=== PATIENT | male | born 1995 | race Caucasian/White ===

== ENCOUNTER 2016-05-25 23:32 | Emergency (ER) | payer OTHER ==
[2016-05-25] MEDS: MORPHINE SULFATE 4 MG/ML SYRINGE IVP STA ×2 (23:38→23:46)
[2016-05-25] MEDS ORDERED: MIDAZOLAM 2 MG/2 ML VIAL IV ONE (23:38)
[2016-05-25] MEDS: SODIUM CHLORIDE 0.9% 1,000 ML IV STA (23:40)
[2016-05-25] MEDS ORDERED: ceFAZolin 2 GM in SODIUM CHLORIDE 0.9% 100 ML IVPB STA ×2 (23:40→23:47)
[2016-05-25] MEDS ORDERED: SODIUM CHLORIDE 0.9% 1,000 ML IV STA (23:46)
[2016-05-25] MEDS ORDERED: RX INFO: IV CONTRAST WAS GIVEN 1 EACH MISC MISCELLANE PRN ×2 (23:46→23:48)
[2016-05-25] MEDS ORDERED: DIPH,PERTUS(ACELL)TETVAC-LF 0.5 ML VIAL IM ONE (23:46)
[2016-05-25] MEDS ORDERED: SODIUM CHLORIDE 0.9% 500 ML IV STA (23:46)
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
[2016-05-25 23:53] LABS: Basophils # (A) 0.1 k/uL (0-0.2); Basophils % (A) 0 %; Eosinophils # (A) 0.2 k/uL (0-0.7); Eosinophils % (A) 1 %; HCT 43.5 % (39.0-53.0); HDW 2.52; HGB 14.7 gm/dL (13.0-17.5); Luc # (Auto) 0.35; Luc % (Auto) 2; Lymphocytes # (A) 3.2 k/uL (1.0-4.8); Lymphocytes % (A) 22 %; MCHC 33.7 g/dL (31.0-37.0); Mean Platelet Volume 7.2; Monocytes # (A) 0.5 k/uL (0-1.0); Monocytes % (A) 4 %; Neutrophils # (A) 10.4 k/uL (1.3-7.7); Neutrophils % (A) 71 %; RBC 4.89 m/uL (4.30-5.90); RDW 12.1 % (11.5-15.5); WBC 14.7 k/uL (4.0-11.0); WBC (Perox) 14.89
[2016-05-26] LABS: ALT 108 U/L (21-72); AST 103 U/L (17-59); Alkaline Phosphatase 65 U/L (38-126); Amylase 80 U/L (30-110); Anion Gap 12 mmol/L; Blood Urea Nitrogen 15 mg/dL (9-20); Calcium 8.2 mg/dL (8.4-10.2); Carbon Dioxide 23 mmol/L (22-30); Chloride 108 mmol/L (98-107); Glucose 106 mg/dL (74-99); Non-African American GFR(MDRD) >60 (>60 ml/min/1.73 sqM); Potassium 4.3 mmol/L (3.5-5.1); Sodium 143 mmol/L (137-145); Total Bilirubin 0.6 mg/dL (0.2-1.3); Total Protein 7.4 g/dL (6.3-8.2)
[2016-05-26 00:01] LABS: Alcohol 227 mg/dL
[2016-05-26 00:05] LABS: INR 1.1 (<1.1); Partial Thromboplastin Time 22.2 sec (22.0-30.0)
[2016-05-26 00:09] LABS: Creatine Kinase 466 U/L (55-170)
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
[2016-05-26 00:22] LABS: Creatine Kinase MB 1.9 ng/mL (0.0-2.4); Troponin I <0.012 ng/mL (0.000-0.034)
[2016-05-26] MEDS: SODIUM CHLORIDE 0.9% 1,000 ML IV STA (00:39)
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
[2016-05-26 01:07] VITALS: BP 180/95; PULSE 121; RESP 18; TEMP 96.1
[2016-05-26 01:34] LABS: Appearance,Urine Clear (Clear); Bacteria,Urine Rare /hpf; Bilirubin,Urine Negative (Negative); Glucose,Urine (UA) Negative (Negative); Granular Casts,Urine 4 /lpf (0); Ketones,Urine Negative (Negative); Leukocyte Esterase,Urine Negative (Negative); Mucus,Urine Rare /hpf; Nitrite,Urine Negative (Negative); PH, Urine 5.5 (5.0-8.0); Particle Count 5268; Protein,Urine Trace (Negative); RBC,Urine 173 /hpf (0-5); Specific Gravity,Urine 1.028 (1.001-1.035); Squamous Epithelial Cell,Urine <1 /hpf (0-4); UA Billing (MACRO vs. MICRO) MICRO; Urobilinogen,Urine <2.0 mg/dL (<2.0); WBC,Urine 11 /hpf (0-5)
[2016-05-27 10:57] LABS: Glucose,Whole Blood 99 mg/dL (75-99)
== END 2016-05-26 02:10 | disposition other institution (70) ==
LOC: EC 23:32
DX: S32.512A Fracture of superior rim of left pubis, initial encounter for closed fracture (principal); S72.302A Unspecified fracture of shaft of left femur, initial encounter for closed fracture; S09.90XA Unspecified injury of head, initial encounter; F10.129 Alcohol abuse with intoxication, unspecified; Z23 Encounter for immunization; V48.5XXA Car driver injured in noncollision transport accident in traffic accident, initial encounter; Y92.410 Unspecified street and highway as the place of occurrence of the external cause
CPT/HCPCS: 99291; 27502; 96365; 96375 ×2; 96361; 90471; 36415; 93005; 86900; 86901; 80053; 82150; 82550; 82553; 83690; 84484; 85025; 85610; 85730; 86850; 81001; 80306; 80320; 71010; 72170; 73552; 73701; 72125; 70486; 70450; 71260; 74177; 90715; J2250; J2270; J0690; Q9967

== ENCOUNTER 2016-12-12 16:09 | Emergency (ER) | payer OTHER ==
[2016-12-12 16:22] VITALS: BP 143/85; PULSE 90; RESP 18; TEMP 96.8
[2016-12-12] MEDS ORDERED: HYDROcodone/APAP 5-325MG 1 EACH TAB PO STA (16:23)
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
== END 2016-12-12 17:35 | disposition home or self-care (01) ==
LOC: EC 16:09
DX: S62.664A Nondisplaced fracture of distal phalanx of right ring finger, initial encounter for closed fracture (principal); S61.304A Unspecified open wound of right ring finger with damage to nail, initial encounter; W20.8XXA Other cause of strike by thrown, projected or falling object, initial encounter; Y93.89 Activity, other specified
CPT/HCPCS: 99283

== ENCOUNTER 2017-01-02 16:34 | Emergency (ER) | payer OTHER ==
[2017-01-02 16:47] VITALS: BP 132/78; PULSE 95; RESP 18; TEMP 97.9
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
== END 2017-01-02 17:13 | disposition home or self-care (01) ==
LOC: EC 16:34
DX: T24.201A Burn of second degree of unspecified site of right lower limb, except ankle and foot, initial encounter (principal); L08.89 Other specified local infections of the skin and subcutaneous tissue; S70.312A Abrasion, left thigh, initial encounter; X19.XXXA Contact with other heat and hot substances, initial encounter
CPT/HCPCS: 99283

== ENCOUNTER 2017-07-17 06:17 | Emergency (ER) | payer OTHER ==
[2017-07-17 06:24] VITALS: TEMP 98.7
[2017-07-17] MEDS ORDERED: SODIUM CHLORIDE 0.9% 500 ML IV STA (06:25)
[2017-07-17] MEDS ORDERED: IPRATROPIUM-ALBUTEROL 3 ML NEB INHALATION STA (06:25)
--- NOTE | 2017-07-17 06:27 | ED ---
General Adult HPI - General Chief complaint: Shortness of Breath Stated complaint: GARRISON Time Seen by Provider: 07/17/17 06:23 Source: patient, RN notes reviewed, old records reviewed Mode of arrival: EMS Limitations: no limitations - History of Present Illness Initial comments: This is a 22-year-old male the ER for evaluation. Patient does say for evaluation regarding shortness of breath cough and congestion, increased cough and congestion. Patient states he does have albuterol inhaler at home but has not had significant improvement. No recent travel history no sick contacts no pain. He does have increased cough and congestion but no fever - Related Data Previous Rx's Medication Instructions Recorded Cephalexin [Keflex] 500 mg PO QID #28 cap 12/12/16 Hydrocodone/Acetaminophen [Burns 1 tab PO Q6HR PRN #15 tab 12/12/16 5-325] Ibuprofen [Motrin] 600 mg PO Q6HR PRN #20 tab 12/12/16 Cephalexin [Keflex] 500 mg PO Q6HR #40 cap 01/02/17 Allergies Allergy/AdvReac Type Severity Reaction Status Date / Time No Known Allergies Allergy Verified 05/25/16 23:55 Review of Systems ROS Statement: Those systems with pertinent positive or pertinent negative responses have been documented in the HPI. ROS Other: All systems not noted in ROS Statement are negative. Past Medical History Past Medical History: Asthma History of Any Multi-Drug Resistant Organisms: None Reported Past Surgical History: Orthopedic Surgery Past Psychological History: No Psychological Hx Reported Smoking Status: Never smoker Past Alcohol Use History: None Reported Past Drug Use History: Marijuana General Exam Limitations: no limitations General appearance: alert, in no apparent distress Head exam: Present: atraumatic, normocephalic, normal inspection Eye exam: Present: normal appearance, PERRL, EOMI. Absent: scleral icterus, conjunctival injection, periorbital swelling ENT exam: Present: normal exam, mucous membranes moist Neck exam: Present: normal inspection. Absent: tenderness, meningismus, lymphadenopathy Respiratory exam: Present: normal lung sounds bilaterally, wheezes. Absent: respiratory distress, rales, rhonchi, stridor Cardiovascular Exam: Present: regular rate, normal rhythm, normal heart sounds. Absent: systolic murmur, diastolic murmur, rubs, gallop, clicks GI/Abdominal exam: Present: soft, normal bowel sounds. Absent: distended, tenderness, guarding, rebound, rigid Extremities exam: Present: normal inspection, full ROM, normal capillary refill. Absent: tenderness, pedal edema, joint swelling, calf tenderness Back exam: Present: normal inspection Neurological exam: Present: alert, oriented X3, CN II-XII intact Psychiatric exam: Present: normal affect, normal mood Skin exam: Present: warm, dry, intact, normal color. Absent: rash Course Vital Signs 07/17/17 06:20 Temperature 98.7 F Pulse Rate 80 Respiratory 16 Rate Blood Pressure 168/104 O2 Sat by Pulse 94 L Oximetry - Reevaluation(s) Reevaluation #1: 07/17/17 06:26 Patient has no significant fevers, no significant chest pain, improvement with breathing treatments Medical Decision Making - Medical Decision Making 22 male the ER was significant has been exacerbation. Patient does have inhaler at home, will represcribed, started on steroids and patient can be discharged home Disposition Clinical Impression: Asthma with exacerbation Disposition: HOME SELF-CARE Condition: Good Instructions: Asthma (ED), Acute Bronchitis (ED) Referrals: Robinson Alvarado DO [Primary Care Provider] - 1-2 days
[2017-07-17] MEDS: MAGNESIUM SULFATE-D5W PMX 1 GM in DEXTROSE/WATER 1 100ML.BAG IVPB SCH ×2 (06:45→08:14)
[2017-07-17 07:20] VITALS: BP 163/87; PULSE 80; RESP 18
== END 2017-07-17 07:44 | disposition home or self-care (01) ==
LOC: EC 06:17
DX: J45.901 Unspecified asthma with (acute) exacerbation (principal)
CPT/HCPCS: 94640; 99285; 96365; J3475

== ENCOUNTER 2017-08-20 17:19 | Emergency (ER) | payer OTHER ==
--- NOTE | 2017-08-20 17:57 | ED ---
Upper Extremity HPI - General Chief Complaint: Extremity Injury, Upper Stated Complaint: Swollen Hand Time Seen by Provider: 08/20/17 17:51 Source: patient, RN notes reviewed Mode of arrival: ambulatory Limitations: no limitations - History of Present Illness Initial Comments: This is a 22-year-old male who presents to the emergency department with chief complaint of right hand injury. Patient states that 2 nights ago he was drinking and punched a wall. He states that since that time his right hand has becomes swollen and he has intermittent pain on the lateral aspect of his hand. He states he wanted to just make sure it was not broken. He states he has been using it at work without any difficulty. Denies any other injuries or trauma. Denies fever, chills, chest pain, shortness of breath, abdominal pain, nausea or vomiting, constipation or diarrhea, dysuria or hematuria, numbness or tingling, headache or vision changes. - Related Data Home Medications Medication Instructions Recorded Confirmed Albuterol Inhaler [Ventolin Hfa 1 - 2 puff INHALATION RT-Q6H PRN 08/20/17 Inhaler] Allergies Allergy/AdvReac Type Severity Reaction Status Date / Time No Known Allergies Allergy Verified 08/20/17 17:48 Review of Systems ROS Statement: Those systems with pertinent positive or pertinent negative responses have been documented in the HPI. ROS Other: All systems not noted in ROS Statement are negative. Past Medical History Past Medical History: Asthma History of Any Multi-Drug Resistant Organisms: None Reported Past Surgical History: Orthopedic Surgery Past Psychological History: No Psychological Hx Reported Smoking Status: Never smoker Past Alcohol Use History: Occasional Past Drug Use History: Marijuana General Exam - General Exam Comments Initial Comments: General: Awake and alert, well-developed; in no apparent distress. HEENT: Head atraumatic, normocephalic. Pupils are equal, round and reactive to light. Extraocular movements intact. Oropharynx moist without erythema or exudate. Neck: Supple. Normal ROM. Cardiovascular: Regular rate and rhythm. No murmurs, rubs or gallops. Chest symmetrical. Respiratory: Lungs clear to auscultation bilaterally. No wheezes, rales or rhonchi. Normal respiratory effort with no use of accessory muscles. Musculoskeletal: Normal range of motion of the right hand and wrist. There is generalized soft tissue swelling to the dorsal aspect of the hand with mild tenderness along the fifth and fourth metacarpals. Sensation is intact. Radial pulses are 2+ equal and palpable bilaterally. Skin: [place], warm and dry without rashes or lesions. Neurological: Alert and oriented x3. CN II-XII grossly intact. Speech is fluent and answers are appropriate. No focal neuro deficits. Psychiatric: Normal mood and affect. No overt signs of depression or anxiety noted. Limitations: no limitations Course Vital Signs 08/20/17 17:35 Temperature 98.8 F Pulse Rate 81 Respiratory 18 Rate Blood Pressure 160/81 O2 Sat by Pulse 97 Oximetry Medical Decision Making - Medical Decision Making This is a 22-year-old male who presents to the emergency department with chief complaint of right hand injury that happened 2 days ago. On physical examination, there is generalized swelling to the dorsal aspect of the right hand with mild tenderness along the fourth and fifth metacarpals. An x-ray was obtained and revealed no acute abnormalities. Patient was supplied with an Ye bandage. He is in no acute distress and will be discharged home at this time. Recommend rest, ice, elevation and ibuprofen as needed. He is in agreement and voices understanding. All questions were answered. - Radiology Data Radiology results: report reviewed Right hand x-ray impression: Negative right hand exam. Disposition Clinical Impression: Contusion of right hand Disposition: HOME SELF-CARE Condition: Good Instructions: Hand Sprain (ED) Additional Instructions: Please rest, ice, elevate and wear Ye bandage until today. May take ibuprofen as needed for pain and inflammation. Please follow up with primary care provider within 1-2 days. Return to emergency department if symptoms should worsen or any concerns arise. Is patient prescribed a controlled substance at d/c from ED?: No Referrals: Robinson Alvarado DO [Primary Care Provider] - 1-2 days Time of Disposition: 18:14
--- NOTE | 2017-08-20 18:10 | XR ---
EXAMINATION TYPE: XR hand complete RT DATE OF EXAM: 08/20/2017 COMPARISON: NONE HISTORY: Pain TECHNIQUE: 3 views FINDINGS: I see no fracture nor dislocation. Joint spaces are normal. Metacarpals are intact. IMPRESSION: Negative right hand exam.
[2017-08-20 18:30] VITALS: BP 154/77; PULSE 87; RESP 17; TEMP 98.7
== END 2017-08-20 18:29 | disposition home or self-care (01) ==
LOC: EC 17:19
DX: S60.221A Contusion of right hand, initial encounter (principal); W22.01XA Walked into wall, initial encounter
CPT/HCPCS: 99283

== ENCOUNTER 2018-03-18 18:06 | Emergency (ER) | payer OTHER ==
--- NOTE | 2018-03-18 18:12 | ED ---
Extremity Problem HPI - General Stated complaint: thumb injury Time Seen by Provider: 03/18/18 18:07 Source: RN notes reviewed, old records reviewed - History of Present Illness Initial comments: Patient is initially 2-year-old male presents emergency Department chief complaint of dropping a cinder block on his right thumb. He works at work. He reports he has a small abrasion over the thumb. He states that since that time is continue to swell and he reports pain with range of motion of the thumb. Patient states that he is right-handed. He denies any other complaints. Patient states that he has pain with any range of motion of the thumb. No other finger injury. - Related Data Home Medications Medication Instructions Recorded Confirmed Albuterol Inhaler [Ventolin Hfa 1 - 2 puff INHALATION RT-Q6H PRN 08/20/17 Inhaler] Previous Rx's Medication Instructions Recorded Acetaminophen with Codeine 1 tab PO Q6H PRN 3 Days #12 tab 03/18/18 [Tylenol w/codeine #3] Cephalexin [Keflex] 500 mg PO Q8HR #21 cap 03/18/18 Allergies Allergy/AdvReac Type Severity Reaction Status Date / Time No Known Allergies Allergy Verified 08/20/17 17:48 Review of Systems ROS Statement: Those systems with pertinent positive or pertinent negative responses have been documented in the HPI. ROS Other: All systems not noted in ROS Statement are negative. Past Medical History Past Medical History: Asthma History of Any Multi-Drug Resistant Organisms: None Reported Past Surgical History: Orthopedic Surgery Past Psychological History: No Psychological Hx Reported Smoking Status: Never smoker Past Alcohol Use History: Occasional Past Drug Use History: Marijuana General Exam - General Exam Comments Initial Comments: 22-year-old male. Alert and oriented. No acute distress. General appearance: alert, in no apparent distress Head exam: Present: atraumatic, normocephalic, normal inspection Eye exam: Present: normal appearance, PERRL, EOMI. Absent: scleral icterus, conjunctival injection, periorbital swelling ENT exam: Present: normal exam, mucous membranes moist Neck exam: Present: normal inspection. Absent: tenderness, meningismus, lymphadenopathy Respiratory exam: Present: normal lung sounds bilaterally Cardiovascular Exam: Present: regular rate, normal rhythm, normal heart sounds. Absent: systolic murmur, diastolic murmur, rubs, gallop, clicks GI/Abdominal exam: Present: soft, normal bowel sounds. Absent: distended, tenderness, guarding, rebound, rigid Extremities exam: Present: normal inspection, full ROM, normal capillary refill. Absent: tenderness, pedal edema, joint swelling, calf tenderness Right Elbow exam: Present: normal inspection, full ROM Forearm Wrist exam: Present: normal inspection, full ROM Hand Wrist exam: Absent: normal inspection, full ROM ( is swelling, swollen first digit. Pain with flexion and extension of the first digit. 2 cm abrasion noted over the thumb.) Back exam: Present: normal inspection Neurological exam: Present: alert, oriented X3, CN II-XII intact Psychiatric exam: Present: normal affect, normal mood Skin exam: Present: warm, dry, intact, normal color. Absent: rash Course Vital Signs 03/18/18 03/18/18 18:10 19:32 Temperature 98.2 F 98.2 F Pulse Rate 105 H 105 H Respiratory 18 18 Rate Blood Pressure 138/77 138/77 O2 Sat by Pulse 98 98 Oximetry Procedures - Orthopedic Splinting/Casting Injury #1 Side: left Upper Extremity Injury Location: finger (thumb) Upper Extremity Immobilizer: thumb spica Medical Decision Making - Medical Decision Making 22 year old male with R thumb pain after concrete smashed the finger. He hsa small abraision over thumb. Xray shows nondisplaced proximal phalanx fracture. Patient placed in thumb spica splint. Given referral to orthopedics. Patient will be placed on keflex for abrasion to cover for open fracture. Discussed close follow up with ortho. Return paramters discussed. - Radiology Data Radiology results: report reviewed Non displaced fracture of proximal first phalanx. Disposition Clinical Impression: Thumb fracture, Open fracture Disposition: HOME SELF-CARE Condition: Good Instructions: Thumb Fracture (ED) Additional Instructions: Patient advised to follow-up with primary care physician. Follow-up with seafood specialist. Take meds as prescribed. Wear the splint. Return to emergency department if any alarming signs or symptoms occur. Prescriptions: Acetaminophen with Codeine [Tylenol w/codeine #3] 1 tab PO Q6H PRN 3 Days #12 tab PRN Reason: Pain Cephalexin [Keflex] 500 mg PO Q8HR #21 cap Is patient prescribed a controlled substance at d/c from ED?: Yes If prescribed controlled substance>3 days was MAPS reviewed?: Yes If opioid is for acute pain is fill amount 7 days or less?: Yes If Rx opioid, was Start Talking consent form obtained?: Yes Referrals: Robinson Alvarado DO [Primary Care Provider] - 1-2 days Daniele Zavala DO [Doctor of Osteopathic Medicine] - 1-2 days Time of Disposition: 19:20
[2018-03-18 18:13] VITALS: BP 138/77; PULSE 105; RESP 18; TEMP 98.2
--- NOTE | 2018-03-18 19:01 | XR ---
EXAMINATION TYPE: XR hand complete RT DATE OF EXAM: 03/18/2018 COMPARISON: NONE HISTORY: Laceration. Pain. TECHNIQUE: 3 views FINDINGS: There is nondisplaced fracture across the head of the proximal phalanx of the thumb. There is no dislocation. Joint spaces are normal. IMPRESSION: Nondisplaced fracture of the proximal phalanx of the thumb.
== END 2018-03-18 19:32 | disposition home or self-care (01) ==
LOC: EC 18:06
DX: S62.514B Nondisplaced fracture of proximal phalanx of right thumb, initial encounter for open fracture (principal); J45.909 Unspecified asthma, uncomplicated; F17.200 Nicotine dependence, unspecified, uncomplicated; W20.8XXA Other cause of strike by thrown, projected or falling object, initial encounter; Y92.69 Other specified industrial and construction area as the place of occurrence of the external cause
CPT/HCPCS: 29125; 99284

== ENCOUNTER 2019-01-06 18:19 | Emergency (ER) | payer OTHER ==
[2019-01-06 18:27] VITALS: BP 158/98; PULSE 82; RESP 18; TEMP 97.6
--- NOTE | 2019-01-06 18:54 | ED ---
Extremity Problem HPI - General Chief complaint: Extremity Problem,Nontraumatic Stated complaint: skin infection Source: patient Mode of arrival: ambulatory Limitations: no limitations - History of Present Illness Initial comments: 23-year-old male presents emergency department for evaluation of redness of the right calf x 1 day. Patient states he had a tattoo done on his right calf on Saturday he states that he noticed redness or some areas of the tattoo. Patient states that he is concerned of an infection. Patient state that it feels tight. Patient denies any inability to walk. Patient states that the symptoms began today. Patient denies a fever fluid symptoms. Remaining review system negative. Upon arrival patient appears well no signs of acute distress - Related Data Home Medications Medication Instructions Recorded Confirmed Albuterol Inhaler [Ventolin Hfa 1 - 2 puff INHALATION RT-Q6H PRN 08/20/17 08/20/17 Inhaler] Previous Rx's Medication Instructions Recorded Acetaminophen with Codeine 1 tab PO Q6H PRN 3 Days #12 tab 03/18/18 [Tylenol w/codeine #3] Cephalexin [Keflex] 500 mg PO Q8HR #21 cap 03/18/18 Cephalexin [Keflex] 500 mg PO Q6HR 7 Days #28 cap 01/06/19 Sulfamethox-Tmp 800-160Mg [Bactrim 1 tab PO Q12HR 7 Days #14 tab 01/06/19 DS 800-160 mg] Allergies Allergy/AdvReac Type Severity Reaction Status Date / Time No Known Allergies Allergy Verified 01/06/19 18:26 Review of Systems ROS Statement: Those systems with pertinent positive or pertinent negative responses have been documented in the HPI. ROS Other: All systems not noted in ROS Statement are negative. Past Medical History Past Medical History: Asthma History of Any Multi-Drug Resistant Organisms: None Reported Past Surgical History: Orthopedic Surgery Past Psychological History: No Psychological Hx Reported Smoking Status: Never smoker Past Alcohol Use History: Occasional Past Drug Use History: Marijuana General Exam - General Exam Comments Initial Comments: General: The patient is awake and alert, in no distress, and does not appear acutely ill. Eye: Pupils are equal, round and reactive to light, extra-ocular movements are intact. No nystagmus. There is normal conjunctiva bilaterally. No signs of icterus. Cardiovascular: There is a regular rate and rhythm. No murmur, rub or gallop is appreciated. Respiratory: Lungs are clear to auscultation, respirations are non-labored, breath sounds are equal. No wheezes, stridor, rales, or rhonchi. Musculoskeletal: Normal ROM, no tenderness. Strength 5/5. Sensation intact. Pulses equal bilaterally 2+. Neurological: A&O x 3. CN II-XII intact grossly, There are no obvious motor or sensory deficits. Coordination appears grossly intact. Speech is normal. Skin: Skin is warm and dry and no rashes. Tatoo on the right calf, noted redness within the areas between the Ink. No vesicular lesions. Compartments soft and compressible. No pain out of proportion. MIld warmth Psychiatric: Cooperative, appropriate mood & affect, normal judgment. Limitations: no limitations Course Vital Signs 01/06/19 18:24 Temperature 97.6 F Pulse Rate 82 Respiratory 18 Rate Blood Pressure 158/98 O2 Sat by Pulse 100 Oximetry Medical Decision Making - Medical Decision Making 23-year-old male with recent tattoo, area appears to have a developing cellulitis. No bullae or vesicular lesions, no pain out of proportion. No systemic signs of infection. Afebrile, nontoxic appearance. Patient will be discharged with oral antibiotics return parameters were discussed patient was discharged appearing well. Disposition Clinical Impression: Cellulitis Disposition: HOME SELF-CARE Condition: Good Instructions (If sedation given, give patient instructions): Cellulitis (ED) Additional Instructions: Please use medication as discussed. Please follow-up with family doctor in the next 2 days. Please return to emergency room if the symptoms increase or worsen or for any other concerns. Prescriptions: Sulfamethox-Tmp 800-160Mg [Bactrim DS 800-160 mg] 1 tab PO Q12HR 7 Days #14 tab Cephalexin [Keflex] 500 mg PO Q6HR 7 Days #28 cap Is patient prescribed a controlled substance at d/c from ED?: No Referrals: Robinson Alvarado DO [Primary Care Provider] - 1-2 days Time of Disposition: 18:54
== END 2019-01-06 18:58 | disposition home or self-care (01) ==
LOC: EC 18:19
DX: L03.115 Cellulitis of right lower limb (principal); J45.909 Unspecified asthma, uncomplicated
CPT/HCPCS: 99283

== ENCOUNTER 2019-02-27 01:28 | Emergency (ER) | payer SELFPAY ==
[2019-02-27 01:40] VITALS: TEMP 97.7
[2019-02-27] MEDS ORDERED: KETOROLAC 30 MG/ML 1 ML VIAL IVP STA (01:43)
[2019-02-27] MEDS ORDERED: MORPHINE SULFATE 2 MG/ML SYRINGE IVP STA (01:44)
--- NOTE | 2019-02-27 01:47 | ED ---
Upper Extremity HPI <Melyssa Bella P - Last Filed: 02/27/19 02:26> - General Source: patient Mode of arrival: ambulatory Limitations: no limitations <April Roy - Last Filed: 02/27/19 02:49> - General Chief Complaint: Extremity Injury, Upper Stated Complaint: Fall Rt Arm Injury Time Seen by Provider: 02/27/19 01:42 - History of Present Illness Initial Comments: 23-year-old male patient presents to the emergency department today for evaluation of right hand injury. Patient states approximately one hour ago he was coming up the steps when he slipped and fell backwards. Patient states that he landed on his hand. He states that he believes his hand is broken. He denies hitting his head or losing consciousness. Denies any neck or back pain. Denies any other injuries. Patient is reporting some numbness and tingling to the right fifth digit. Patient denies any headache, chest pain, shortness of breath, dizziness, weakness, abdominal pain, nausea, vomiting, or difficulties with bowel movements or urination. (April Roy) - Related Data Home Medications Medication Instructions Recorded Confirmed Albuterol Inhaler [Ventolin Hfa 1 - 2 puff INHALATION RT-Q6H PRN 08/20/17 08/20/17 Inhaler] Previous Rx's Medication Instructions Recorded Acetaminophen with Codeine 1 tab PO Q6H PRN 3 Days #12 tab 03/18/18 [Tylenol w/codeine #3] Cephalexin [Keflex] 500 mg PO Q8HR #21 cap 03/18/18 Cephalexin [Keflex] 500 mg PO Q6HR 7 Days #28 cap 01/06/19 Sulfamethox-Tmp 800-160Mg [Bactrim 1 tab PO Q12HR 7 Days #14 tab 01/06/19 DS 800-160 mg] Ibuprofen [Motrin] 600 mg PO Q8HR PRN #30 tab 02/27/19 Allergies Allergy/AdvReac Type Severity Reaction Status Date / Time No Known Allergies Allergy Verified 02/27/19 01:40 Review of Systems ROS Other: All systems not noted in ROS Statement are negative. <Melyssa Bella - Last Filed: 02/27/19 02:26> ROS Other: All systems not noted in ROS Statement are negative. <April Roy - Last Filed: 02/27/19 02:49> ROS Statement: Those systems with pertinent positive or pertinent negative responses have been documented in the HPI. Past Medical History Past Medical History: Asthma History of Any Multi-Drug Resistant Organisms: None Reported Past Surgical History: Orthopedic Surgery Past Psychological History: No Psychological Hx Reported Smoking Status: Never smoker Past Alcohol Use History: Occasional Past Drug Use History: Marijuana <April Roy M - Last Filed: 02/27/19 02:49> General Exam Limitations: no limitations General appearance: alert, in no apparent distress, other (This is a well- developed, well-nourished adult male patient in no acute distress. Vital signs upon presentation are temperature 97.7F, pulse 93, respirations 18, blood pressure 145/84, pulse ox 99% on room air.) Eye exam: Present: normal appearance, PERRL, EOMI. Absent: scleral icterus, conjunctival injection, periorbital swelling ENT exam: Present: normal exam, normal oropharynx, mucous membranes moist Respiratory exam: Present: normal lung sounds bilaterally. Absent: respiratory distress, wheezes, rales, rhonchi, stridor Cardiovascular Exam: Present: regular rate, normal rhythm, normal heart sounds. Absent: systolic murmur, diastolic murmur, rubs, gallop, clicks Extremities exam: Present: full ROM, tenderness (Tenderness over the dorsal aspect of the right hand), normal capillary refill, other (There is deformity and extensive soft tissue swelling noted over the dorsal aspect of the right hand. Skin is pink, warm, dry. Cap refill is less than 3 seconds.). Absent: pedal edema, joint swelling, calf tenderness Neurological exam: Present: alert, oriented X3, CN II-XII intact Psychiatric exam: Present: normal affect, normal mood Skin exam: Present: warm, dry, intact, normal color. Absent: rash <April Roy M - Last Filed: 02/27/19 02:49> Course Vital Signs 02/27/19 01:37 Temperature 97.7 F Pulse Rate 93 Respiratory 18 Rate Blood Pressure 145/84 O2 Sat by Pulse 99 Oximetry Procedures - Orthopedic Joint Reduction Joint #1 Consent Obtained: verbal consent Side: right Joint Reduction Location: finger Analgesia: procedural sedation Technique Used: traction/counter-traction Post-Reduction Neuro Exam: intact Post-Reduction Vascular Exam: intact - Procedural Sedation Procedural Sedation Start Time: 02:32 Procedural Sedation Stop Time: 02:47 Indications: fracture/dislocation reduction ASA Class: I Mallampati Airway Score: 1 Preparation: alarm security or surveillance monitor applied, pulse oximeter, capnometry used, supplemental O2 applied, reversal agents at bedside, suction/airway equipment at bedside, IV secured IV Propofol Dose (mgs): 120 Complications: none <Melyssa Bella - Last Filed: 02/27/19 02:26> Medical Decision Making - Radiology Data Radiology results: report reviewed, image reviewed <April Roy - Last Filed: 02/27/19 02:49> - Medical Decision Making 23-year-old male patient presents to the emergency department today for evaluation of right hand injury. Physical examination did reveal deformity of the dorsal aspect of the right hand. X-rays were obtained and did reveal dislocation of the fourth and fifth metacarpals. My attending Dr. Bella was in for evaluation and did perform conscious sedation with closed reduction of the right hand. Splint was applied. Postreduction x-rays were obtained. He'll be discharged to follow-up with the nursing informatics specialist Dr. Adame for further evaluation. He is given prescription for Cipro for pain control. He is educated regarding rest, ice, elevation. Return parameters discussed in detail. He verbalizes understanding and agrees with this plan. (April Roy) - Radiology Data 3 views of the right hand are obtained. Report was reviewed in its entirety. Impression by Dr. Vines shows posterior dislocation of the fourth and fifth carpometacarpal joints. This appears new compared to old exam. No fracture seen. (April Roy) Disposition <Melyssa Bella - Last Filed: 02/27/19 02:26> Is patient prescribed a controlled substance at d/c from ED?: No <April Roy - Last Filed: 02/27/19 02:49> Clinical Impression: Dislocation of metacarpal joint of right hand Narrative: Right fourth and fifth metacarpals (April Roy) Disposition: HOME SELF-CARE Condition: Good Instructions (If sedation given, give patient instructions): Closed Reduction (ED), Moderate Sedation (ED) Additional Instructions: Keep splint in place until follow-up. Apply ice 29th at a time at least 4 times daily. Take ibuprofen for pain control. Follow-up with the orthopedic spec ialist for recheck in 1-2 days. Return to the emergency department immediately for any new, worsening, or concerning symptoms. Prescriptions: Ibuprofen [Motrin] 600 mg PO Q8HR PRN #30 tab PRN Reason: Pain Referrals: Robinson Alvarado DO [Primary Care Provider] - 1-2 days Ruddy Adame DO [Medical Doctor] - 1-2 days
[2019-02-27] MEDS ORDERED: PROPOFOL 10 MG/ML 20 ML VIAL IV STA (02:03)
--- NOTE | 2019-02-27 02:10 | XR ---
EXAMINATION TYPE: XR hand complete RT DATE OF EXAM: 02/27/2019 COMPARISON: 03/18/2018 HISTORY: Pain TECHNIQUE: 3 views FINDINGS: There is posterior dislocation of the fourth and fifth carpometacarpal joints. I see no fra cture line. Joint spaces are otherwise unremarkable. IMPRESSION: Posterior dislocation of the fourth and fifth carpometacarpal joints. This appears new co mpared to old exam. No fracture seen.
[2019-02-27] MEDS ORDERED: IBUPROFEN 600 MG STARTER PACK 4 TAB BTL PO STA (02:44)
--- NOTE | 2019-02-27 03:07 | XR ---
EXAMINATION TYPE: XR hand limited RT DATE OF EXAM: 02/27/2019 COMPARISON: Today HISTORY: Post reduction TECHNIQUE: 2 views FINDINGS: 2 views are obtained through the splint that show apparent anatomic reduction of the disloc ated fourth and fifth carpometacarpal joints . I see no fracture line. IMPRESSION: Anatomic reduction. No complicating process seen.
[2019-02-27 03:51] VITALS: BP 147/68; PULSE 84; RESP 16
== END 2019-02-27 03:53 | disposition home or self-care (01) ==
LOC: EC 01:28
DX: S63.054A Dislocation of other carpometacarpal joint of right hand, initial encounter (principal); J45.909 Unspecified asthma, uncomplicated; Z79.51 Long term (current) use of inhaled steroids; W01.0XXA Fall on same level from slipping, tripping and stumbling without subsequent striking against object, initial encounter
CPT/HCPCS: 73120; 73130; 99283; 99152; 26770; 96374; 96375; J1885; J2270; J2704

== ENCOUNTER → 2019-03-04 | Outpatient (CLI) | payer SELFPAY ==
--- NOTE | 2019-03-04 09:00 | XR ---
EXAMINATION TYPE: XR wrist limited RT DATE OF EXAM: 03/04/2019 COMPARISON: 02/27/2019 HISTORY: Pain TECHNIQUE: Two views submitted. FINDINGS: The osseous structures are intact. The joint spaces are preserved and there is no acute fracture or dislocation. Overlying wrapping casting material noted. IMPRESSION: 1. No definite acute fracture or dislocation.
== END | disposition home or self-care (01) ==
LOC: RADXRMAIN 08:43
PROVIDERS: ATTEND Nurse Practitioner Family
DX: S63.004A Unspecified dislocation of right wrist and hand, initial encounter (principal)

== ENCOUNTER 2019-04-17 13:13 | Emergency (ER) | payer OTHER ==
[2019-04-17 13:57] VITALS: BP 147/87; PULSE 87; RESP 18; TEMP 98.4
--- NOTE | 2019-04-17 14:29 | ED ---
Skin/Abscess/FB HPI - General Chief complaint: Skin/Abscess/Foreign Body Stated complaint: MRSA on leg Time Seen by Provider: 04/17/19 13:58 Source: patient, family Mode of arrival: ambulatory - History of Present Illness Initial comments: 23-year-old male presenting for possible abscess left thighx 1 day. She states that he noticed a day ago a bump on his left eye he states he thought it was ingrown hair however he had a lesion on his wrist which she thought was MRSA but was never tested at the [facility] on his left wrist that went away with bactrim. Patient denies fever, flu like symptoms, denies significant drainage from site. Denies other affected areas. Remaining ROS (-). Upon arrival patient appears well nontoxic. Afebrile. - Related Data Home Medications Medication Instructions Recorded Confirmed Albuterol Inhaler [Ventolin Hfa 1 - 2 puff INHALATION RT-Q6H PRN 08/20/17 08/20/17 Inhaler] Previous Rx's Medication Instructions Recorded Acetaminophen with Codeine 1 tab PO Q6H PRN 3 Days #12 tab 03/18/18 [Tylenol w/codeine #3] Cephalexin [Keflex] 500 mg PO Q8HR #21 cap 03/18/18 Cephalexin [Keflex] 500 mg PO Q6HR 7 Days #28 cap 01/06/19 Sulfamethox-Tmp 800-160Mg [Bactrim 1 tab PO Q12HR 7 Days #14 tab 01/06/19 DS 800-160 mg] Ibuprofen [Motrin] 600 mg PO Q8HR PRN #30 tab 02/27/19 Cephalexin [Keflex] 500 mg PO Q6HR 28 Days #7 cap 04/17/19 Sulfamethox-Tmp 800-160Mg [Bactrim 1 tab PO Q12HR 7 Days #14 tab 04/17/19 DS 800-160 mg] Allergies Allergy/AdvReac Type Severity Reaction Status Date / Time No Known Allergies Allergy Verified 02/27/19 01:40 Review of Systems ROS Statement: Those systems with pertinent positive or pertinent negative responses have been documented in the HPI. ROS Other: All systems not noted in ROS Statement are negative. Past Medical History Past Medical History: Asthma History of Any Multi-Drug Resistant Organisms: None Reported Past Surgical History: Orthopedic Surgery Past Psychological History: No Psychological Hx Reported Smoking Status: Never smoker Past Alcohol Use History: Occasional Past Drug Use History: Marijuana General Exam - General Exam Comments Initial Comments: General: The patient is awake and alert, in no distress, and does not appear acutely ill. Eye: Pupils are equal, round and reactive to light, extra-ocular movements are intact. No nystagmus. There is normal conjunctiva bilaterally. No signs of icterus. Cardiovascular: There is a regular rate and rhythm. No murmur, rub or gallop is appreciated. Respiratory: Lungs are clear to auscultation, respirations are non-labored, breath sounds are equal. No wheezes, stridor, rales, or rhonchi. Musculoskeletal: Normal ROM, no tenderness. Strength 5/5. Sensation intact. Pulses equal bilaterally 2+. Neurological: A&O x 3. CN II-XII intact grossly, There are no obvious motor or sensory deficits. Coordination appears grossly intact. Speech is normal. Skin: Skin is warm and dry and no rashes. Round raised area near hair follicular with no general area of fluctuance however mild surrounding erythema roughly 3 x 3 cm circular left medial thigh, no streaking proximally. Psychiatric: Cooperative, appropriate mood & affect, normal judgment. Course Vital Signs 04/17/19 13:52 Temperature 98.4 F Pulse Rate 87 Respiratory 18 Rate Blood Pressure 147/87 O2 Sat by Pulse 96 Oximetry Medical Decision Making - Medical Decision Making 3-year-old male presenting for possible abscess. No area of fluctuance mild induration very small with surrounding cellulitis. Patient most likely has carbuncle be treated antibiotics return parameters discussed including spreading of redness increasing pain fevers like symptoms patient verbalized understanding discharged appearing well patient has from history of MRSA Disposition Clinical Impression: Cellulitis Disposition: HOME SELF-CARE Condition: Good Instructions (If sedation given, give patient instructions): Cellulitis (ED), Abscess (ED) Additional Instructions: Please use medication as discussed. Please follow-up with family doctor in the next 2 days.. Please return to emergency room if the symptoms increase or worsen or for any other concerns-watch the area of redness as discussed return if there is increasing, you develop fevers increasing pain and swelling, drainage. Prescriptions: Sulfamethox-Tmp 800-160Mg [Bactrim DS 800-160 mg] 1 tab PO Q12HR 7 Days #14 tab Cephalexin [Keflex] 500 mg PO Q6HR 28 Days #7 cap Is patient prescribed a controlled substance at d/c from ED?: No Referrals: Robinson Alvarado DO [Primary Care Provider] - 1-2 days Time of Disposition: 14:29
== END 2019-04-17 14:30 | disposition home or self-care (01) ==
LOC: EC 13:13
DX: L03.116 Cellulitis of left lower limb (principal); J45.909 Unspecified asthma, uncomplicated; Z79.899 Other long term (current) drug therapy; Z86.14 Personal history of Methicillin resistant Staphylococcus aureus infection
CPT/HCPCS: 99283

== ENCOUNTER 2019-10-22 21:15 | Inpatient (IN) | payer OTHER ==
[2019-10-22] MEDS ORDERED: SODIUM CHLORIDE 0.9% 1,000 ML IV STA (21:25)
[2019-10-22 21:34] LABS: Basophils % (A) 1 %; Eosinophils # (A) 0.1 k/uL (0-0.7); Eosinophils % (A) 1 %; HCT 44.6 % (39.0-53.0); HGB 14.5 gm/dL (13.0-17.5); Lymphocytes # (A) 2.9 k/uL (1.0-4.8); Lymphocytes % (A) 32 %; MCH 29.1 pg (25.0-35.0); MCHC 32.5 g/dL (31.0-37.0); MCV 89.6 fL (80.0-100.0); Mean Platelet Volume 8.9; Monocytes # (A) 0.4 k/uL (0-1.0); Monocytes % (A) 5 %; Neutrophils # (A) 5.4 k/uL (1.3-7.7); Neutrophils % (A) 59 %; Platelet Count 212 k/uL (150-450); RBC 4.98 m/uL (4.30-5.90); RDW 12.2 % (11.5-15.5); WBC 9.1 k/uL (3.8-10.6)
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
[2019-10-22] MEDS ORDERED: fentaNYL (PF) 50 MCG/ML 2 ML AMP IVP STA ×2 (21:39→22:05)
[2019-10-22 21:47] LABS: ALT 28 U/L (4-49); AST 37 U/L (17-59); African American GFR (CKD) >90 (>60 ml/min/1.73 sqM); Albumin 4.4 g/dL (3.5-5.0); Alkaline Phosphatase 74 U/L (38-126); Amylase 75 U/L (30-110); Anion Gap 10 mmol/L; Blood Urea Nitrogen 10 mg/dL (9-20); Calcium 8.9 mg/dL (8.4-10.2); Carbon Dioxide 22 mmol/L (22-30); Chloride 108 mmol/L (98-107); Glucose 103 mg/dL (74-99); Non-African American GFR(CKD) 90 (>60 ml/min/1.73 sqM); Potassium 4.1 mmol/L (3.5-5.1); Sodium 140 mmol/L (137-145); Total Bilirubin 0.5 mg/dL (0.2-1.3); Total Protein 7.4 g/dL (6.3-8.2)
[2019-10-22 21:52] LABS: Creatine Kinase 169 U/L (55-170)
[2019-10-22 21:53] LABS: Alcohol 197 mg/dL
[2019-10-22 21:59] LABS: Prothrombin Time 10.1 sec (9.0-12.0)
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
[2019-10-22 22:06] LABS: Creatine Kinase MB 1.1 ng/mL (0.0-2.4); Troponin I <0.012 ng/mL (0.000-0.034)
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
[2019-10-22 22:41] LABS: Appearance,Urine Clear (Clear); Bilirubin,Urine Negative (Negative); Blood,Urine Negative (Negative); Color,Urine Light Yellow; Glucose,Urine (UA) Negative (Negative); Ketones,Urine Negative (Negative); Leukocyte Esterase,Urine Negative (Negative); Nitrite,Urine Negative (Negative); Protein,Urine Negative (Negative); Specific Gravity,Urine 1.018 (1.001-1.035); Urobilinogen,Urine <2.0 mg/dL (<2.0)
[2019-10-22] MEDS ORDERED: HYDROmorphone 1 MG/ML 1 ML SYRINGE IVP STA (22:47)
--- NOTE | 2019-10-22 22:55 | XR ---
EXAMINATION TYPE: XR knee complete RT DATE OF EXAM: 10/22/2019 COMPARISON: NONE HISTORY: Knee pain TECHNIQUE: 3 views FINDINGS: I see no fracture nor dislocation. Joint spaces are normal. There is no sign of joint effus ion. IMPRESSION: Negative right knee exam.
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
--- NOTE | 2019-10-22 22:59 | XR ---
EXAMINATION TYPE: XR humerus LT DATE OF EXAM: 10/22/2019 COMPARISON: NONE HISTORY: Pain TECHNIQUE: 2 views FINDINGS: I see no fracture nor dislocation. Glenohumeral joint is anatomic.. IMPRESSION: Negative left humerus exam. There is suggestion of slight widening of the coracoclavicula r joint space and malalignment at the AC joint suggestive of some ligamentous tear.
--- NOTE | 2019-10-22 23:00 | XR ---
EXAMINATION TYPE: XR scapula LT DATE OF EXAM: 10/22/2019 COMPARISON: NONE HISTORY: Pain TECHNIQUE: 2 views FINDINGS: I see no evidence of a scapular fracture. Glenohumeral joint is anatomic. There is some wid ening of the coracoclavicular joint space and malalignment at the AC joint consistent with ligamentou s tear. I see no focal bone destruction. IMPRESSION: There is ligament tear as above. No fracture seen of the scapula.
[2019-10-22 23:04] LABS: Amphetamine Screen,Urine Not Detected (NotDetected); Barbiturate Screen,Urine Not Detected (NotDetected); Benzodiazepines Screen,Urine Not Detected (NotDetected); Cocaine Screen,Urine Detected (NotDetected); Methadone Screen, Urine Not Detected (NotDetected); Opiate Screen,Urine Not Detected (NotDetected); Oxycodone Screen, Urine Not Detected (NotDetected); Phencyclidine Screen,Urine Not Detected (NotDetected); Tricyclic Antidepressant,Urine Not Detected (NotDetected); Urn Cannabinoid Scrn Not Detected (NotDetected)
[2019-10-22] MEDS ORDERED: SODIUM CHLORIDE 0.9% 1,000 ML IV SCH (23:45)
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
[2019-10-22] MEDS ORDERED: NALOXONE 0.4 MG/ML 1 ML VIAL IV PRN (23:52)
[2019-10-22] MEDS ORDERED: MORPHINE SULFATE 4 MG/ML SYRINGE IV PRN (23:52)
[2019-10-23] MEDS: KETOROLAC 30 MG/ML 1 ML VIAL IVP PRN ×2 (02:38→08:41)
[2019-10-23 07:19] LABS: African American GFR (CKD) >90 (>60 ml/min/1.73 sqM); Anion Gap 11 mmol/L; Blood Urea Nitrogen 10 mg/dL (9-20); Carbon Dioxide 21 mmol/L (22-30); Chloride 108 mmol/L (98-107); Glucose 100 mg/dL (74-99); Non-African American GFR(CKD) >90 (>60 ml/min/1.73 sqM); Potassium 4.5 mmol/L (3.5-5.1); Sodium 140 mmol/L (137-145)
[2019-10-23 07:25] LABS: Basophils % (A) 0 %; Eosinophils # (A) 0.1 k/uL (0-0.7); Eosinophils % (A) 1 %; HCT 42.2 % (39.0-53.0); HGB 14.5 gm/dL (13.0-17.5); Lymphocytes # (A) 2.2 k/uL (1.0-4.8); Lymphocytes % (A) 21 %; MCH 31.3 pg (25.0-35.0); MCHC 34.5 g/dL (31.0-37.0); MCV 90.9 fL (80.0-100.0); Mean Platelet Volume 8.8; Monocytes # (A) 0.7 k/uL (0-1.0); Monocytes % (A) 6 %; Neutrophils # (A) 7.4 k/uL (1.3-7.7); Neutrophils % (A) 70 %; Platelet Count 206 k/uL (150-450); RBC 4.64 m/uL (4.30-5.90); RDW 12.4 % (11.5-15.5); WBC 10.5 k/uL (3.8-10.6)
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
[2019-10-23] MEDS ORDERED: HYDROcodone/APAP 5-325MG 1 EACH TAB PO PRN (12:22)
[2019-10-23 12:54] VITALS: BP 134/73; PULSE 75; RESP 18; TEMP 98.2
[2019-10-23] MEDS ORDERED: ALBUTEROL HFA INHALER INHALATION PRN (13:07)
[2019-10-23] MEDS ORDERED: SYMBICORT 80-4.5 MCG INHALER INHALATION SCH (13:08)
== END 2019-10-23 15:22 | disposition home or self-care (01) | DRG 563 ==
LOC: EC 21:15 → 3SCARD 23:52
PROVIDERS: ADMIT Surgery; ATTEND Surgery
DX: S43.102A Unspecified dislocation of left acromioclavicular joint, initial encounter (principal); G93.40 Encephalopathy, unspecified; V28.0XXA Motorcycle driver injured in noncollision transport accident in nontraffic accident, initial encounter; Y92.410 Unspecified street and highway as the place of occurrence of the external cause; F10.129 Alcohol abuse with intoxication, unspecified; F14.90 Cocaine use, unspecified, uncomplicated; Y90.6 Blood alcohol level of 120-199 mg/100 ml; J45.909 Unspecified asthma, uncomplicated; Z82.49 Family history of ischemic heart disease and other diseases of the circulatory system; Z87.81 Personal history of (healed) traumatic fracture; M25.561 Pain in right knee; Z79.899 Other long term (current) drug therapy; E73.9 Lactose intolerance, unspecified; Z11.59 Encounter for screening for other viral diseases
CPT/HCPCS: 36415; 70450; 71045; 71260; 72125; 72170; 74177; 80048; 80053; 80306; 80320; 81003; 82150; 82550; 82553; 83605; 83690; 84484; 85025; 85610; 85730; 86850; 86900; 86901; 96361; 96374; 96375; 99285

== ENCOUNTER 2022-12-09 16:18 | Emergency (ER) | payer BC ==
[2022-12-09 16:29] VITALS: TEMP 98.2
[2022-12-09] MEDS ORDERED: ASPIRIN 81 MG PO STA (16:48)
--- NOTE | 2022-12-09 16:50 | ED ---
Chest Pain HPI - General Chief Complaint: Chest Pain Stated Complaint: TIGHTNESS IN CHEST ABN EKG Source: patient, family Mode of arrival: ambulatory Limitations: no limitations - History of Present Illness Initial Comments: 27-year-old male with no significant past medical history presenting to the ED with a chief complaint of chest pain. Patient states was eating lunch at [employer] ro[place] 11 PM when he started to feel chest tightness on the left side of his chest. Tightness is intermittent in nature and lasts approximately a minute. No known aggravating or preceding factors. [facility] this [facility] which sent the patient to this facility for further evaluation. No nausea or vomiting. Patient is a nonsmoker. No other complaints. - Related Data Home Medications Medication Instructions Recorded Confirmed Albuterol Inhaler [Ventolin Hfa 1 - 2 puff INHALATION RT-QID PRN 10/22/19 12/09/22 Inhaler] Allergies Allergy/AdvReac Type Severity Reaction Status Date / Time lactose Allergy Unknown Verified 12/09/22 18:27 Review of Systems ROS Statement: Those systems with pertinent positive or pertinent negative responses have been documented in the HPI. ROS Other: All systems not noted in ROS Statement are negative. Past Medical History Past Medical History: Asthma History of Any Multi-Drug Resistant Organisms: None Reported Past Surgical History: Orthopedic Surgery Additional Past Surgical History / Comment(s): ankle, pelvis, femur Past Anesthesia/Blood Transfusion Reactions: No Reported Reaction Past Psychological History: No Psychological Hx Reported Smoking Status: Vaper Past Alcohol Use History: Abuse, Daily, Heavy Past Drug Use History: None Reported - Past Family History Mother Family Medical History: Hypertension Father History Unknown: Yes General Exam Limitations: no limitations General appearance: alert, in no apparent distress Neck exam: Present: normal inspection Respiratory exam: Present: normal lung sounds bilaterally Cardiovascular Exam: Present: regular rate, normal rhythm GI/Abdominal exam: Present: soft Neurological exam: Present: alert, oriented X3 Course Vital Signs 12/09/22 12/09/22 12/09/22 16:27 19:48 21:10 Temperature 98.2 F Pulse Rate 84 71 79 Respiratory 18 16 16 Rate Blood Pressure 161/92 167/84 146/116 O2 Sat by Pulse 100 99 99 Oximetry Chest Pain MDM - MDM Was pt. sent in by a medical professional or institution (, PA, QUALIFIED CRAFT WORKER ELECTRICIAN, urgent care, hospital, or alf...) When possible be specific @ -No Did you speak to anyone other than the patient for history (EMS, parent, family, police, friend...)? What history was obtained from this source @ -No Did you review nursing and triage notes (agree or disagree)? Why? @ -I reviewed and agree with nursing and triage notes Were old charts reviewed (outside hosp., previous admission, EMS record, old EKG, old radiological studies, urgent care reports/EKG's, alf records)? Report findings @ -No old charts were reviewed Differential Diagnosis (chest pain, altered mental status, abdominal pain women, abdominal pain men, vaginal bleeding, weakness, fever, dyspnea, syncope, headache, dizziness, GI bleed, back pain, seizure, CVA, palpatations, mental health, musculoskeletal)? @ -Differential Chest Pain: Stable Angina, Unstable Angina, STEMI, NSTEMI Aortic Dissection, Pneumothorax, Musculoskeletal, Esophageal Spasm GERD, Cholecystitis, Pancreatitis, Zoster, this is not meant to be an all-inclusive list. EKG interpreted by me (3pts min.). @ -EKG shows a sinus rhythm at [address] and T-wave changes. DE 135, QRS 98, QT/QTc 372/405. X-rays interpreted by me (1pt min.). @ -Chest x-ray interpreted by me shows no acute findings. CT interpreted by me (1pt min.). @ -None done U/S interpreted by me (1pt. min.). @ -None done What testing was considered but not performed or refused? (CT, X-rays, U/S, labs)? Why? @ -None What meds were considered but not given or refused? Why? @ -None Did you discuss the management of the patient with other professionals (professionals i.e. , PA, QUALIFIED CRAFT WORKER ELECTRICIAN, lab, RT, psych nurse, social media developer, auto repair shop manager, teacher, tax revenue officer, case monitor)? Give summary @ -No Was smoking cessation discussed for >3mins.? @ -No Was critical care preformed (if so, how long)? @ -No Were there social determinants of health that impacted care today? How? (Homelessness, low income, unemployed, alcoholism, drug addiction, transportation, low edu. Level, literacy, decrease access to med. care, detention, rehab)? @ -No Was there de-escalation of care discussed even if they declined (Discuss DNR or withdrawal of care, Hospice)? DNR status @ -No What co-morbidities impacted this encounter? (DM, HTN, Smoking, COPD, CAD, Cancer, CVA, ARF, Chemo, Hep., AIDS, mental health diagnosis, sleep apnea, morbid obesity)? @ -None Was patient admitted / discharged? Hospital course, mention meds given and route, prescriptions, significant lab abnormalities, going to OR and other pertinent info. @ -Discharge. Laboratory studies including d-dimer, troponin 2 negative. EKG nonspecific. Symptoms likely musculoskeletal in nature. Discharged home in stable condition. Discussed return precautions with patient who verbalized agreement. Undiagnosed new problem with uncertain prognosis? @ -No Drug Therapy requiring intensive monitoring for toxicity (Heparin, Nitro, Insulin, Cardizem)? @ -No Were any procedures done? @ -No Diagnosis/symptom? @ -Chest pain Acute, or Chronic, or Acute on Chronic? @ -Acute Uncomplicated (without systemic symptoms) or Complicated (systemic symptoms)? @ -Uncomplicated Side effects of treatment? @ -No Exacerbation, Progression, or Severe Exacerbation? @ -No Poses a threat to life or bodily function? How? (Chest pain, [place], [place], pneumonia, PE, COPD, DKA, ARF, appy, cholecystitis, CVA, Diverticulitis, Homicidal, Suicidal, threat to staff... and all critical care pts) @ -No Disposition Clinical Impression: Chest pain Disposition: HOME SELF-CARE Condition: Good Instructions (If sedation given, give patient instructions): Chest Pain (ED) Additional Instructions: Please return to the Emergency Department if symptoms worsen or any other concerns. Is patient prescribed a controlled substance at d/c from ED?: No Referrals: Robinson Alvarado DO [Primary Care Provider] - 1-2 days Time of Disposition: 21:14
--- NOTE | 2022-12-09 17:19 | XR ---
EXAMINATION TYPE: XR chest 2V DATE OF EXAM: 12/09/2022 COMPARISON: 10/22/2019 HISTORY: Chest pain TECHNIQUE: Frontal and lateral views of the chest are obtained. FINDINGS: There is no focal air space opacity, pleural effusion, or pneumothorax seen. The cardiac silhouette size is within normal limits. The osseous structures are intact. IMPRESSION: No acute cardiopulmonary process.
[2022-12-09 17:32] LABS: Basophils % (A) 0 %; Eosinophils # (A) 0.1 k/uL (0-0.7); Eosinophils % (A) 1 %; HGB 15.6 gm/dL (13.0-17.5); Lymphocytes # (A) 2.8 k/uL (1.0-4.8); Lymphocytes % (A) 19 %; MCH 30.2 pg (25.0-35.0); MCHC 34.7 g/dL (31.0-37.0); MCV 87.2 fL (80.0-100.0); Mean Platelet Volume 8.7; Monocytes # (A) 0.7 k/uL (0-1.0); Monocytes % (A) 5 %; Neutrophils # (A) 10.6 k/uL (1.3-7.7); Neutrophils % (A) 73 %; Platelet Count 301 k/uL (150-450); RBC 5.16 m/uL (4.30-5.90); RDW 12.2 % (11.5-15.5); WBC 14.6 k/uL (3.8-10.6)
[2022-12-09 17:40] LABS: ALT 70 U/L (4-49); AST 55 U/L (17-59); African American GFR (CKD) >90 (>60 ml/min/1.73 sqM); Albumin 4.6 g/dL (3.5-5.0); Alkaline Phosphatase 93 U/L (38-126); Anion Gap 8 mmol/L; Blood Urea Nitrogen 13 mg/dL (9-20); Calcium 9.8 mg/dL (8.4-10.2); Carbon Dioxide 29 mmol/L (22-30); Chloride 99 mmol/L (98-107); Glucose 89 mg/dL (74-99); Magnesium 1.9 mg/dL (1.6-2.3); Non-African American GFR(CKD) >90 (>60 ml/min/1.73 sqM); Potassium 4.1 mmol/L (3.5-5.1); Sodium 136 mmol/L (137-145); Total Bilirubin 0.7 mg/dL (0.2-1.3); Total Protein 8.4 g/dL (6.3-8.2)
[2022-12-09 17:47] LABS: Partial Thromboplastin Time 24.1 sec (22.0-30.0); Prothrombin Time 10.3 sec (9.0-12.0)
[2022-12-09 19:51] VITALS: RESP 16
[2022-12-09 20:33] LABS: Appearance,Urine Clear (Clear); Bilirubin,Urine Negative (Negative); Blood,Urine Negative (Negative); Glucose,Urine (UA) Negative (Negative); Ketones,Urine Negative (Negative); Leukocyte Esterase,Urine Negative (Negative); Mucus,Urine Many /hpf; Nitrite,Urine Negative (Negative); Protein,Urine 1+ (Negative); RBC,Urine 1 /hpf (0-5); Specific Gravity,Urine 1.041 (1.001-1.035); Squamous Epithelial Cell,Urine <1 /hpf (0-4); Urobilinogen,Urine <2.0 mg/dL (<2.0)
[2022-12-09 20:34] LABS: Color,Urine Yellow
[2022-12-09 21:12] VITALS: BP 146/116; PULSE 79
== END 2022-12-09 21:17 | disposition home or self-care (01) ==
LOC: EC 16:18
DX: R00.0 Tachycardia, unspecified (principal); J45.909 Unspecified asthma, uncomplicated; F17.290 Nicotine dependence, other tobacco product, uncomplicated; Z91.011 Allergy to milk products; Z79.899 Other long term (current) drug therapy
CPT/HCPCS: 36415; 71046; 80053; 81001; 83735; 84484; 85025; 85379; 85610; 85730; 93005; 99285

== ENCOUNTER 2024-10-16 20:56 | Emergency (ER) | payer BC, OTHER ==
[2024-10-16] MEDS: FAMOTIDINE 20 MG/2 ML VIAL IV STA (22:20)
[2024-10-16] MEDS: methylPREDNISolone SOD SUCCI 125 MG/2 ML VIAL IV STA (22:21)
[2024-10-16] MEDS: diphenhydrAMINE 50 MG/ML 1 ML VIAL IVP STA (22:21)
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
[2024-10-16 23:46] VITALS: BP 121/71; PULSE 76; RESP 16; TEMP 98.2
== END 2024-10-16 23:29 | disposition home or self-care (01) ==
LOC: EC 20:56
DX: S51.812A Laceration without foreign body of left forearm, initial encounter (principal); T78.40XA Allergy, unspecified, initial encounter; I10 Essential (primary) hypertension; F17.290 Nicotine dependence, other tobacco product, uncomplicated; Z88.1 Allergy status to other antibiotic agents; Z91.011 Allergy to milk products; W22.8XXA Striking against or struck by other objects, initial encounter
CPT/HCPCS: 99283; 96374; 96375; 12001; J1200; J2919; J1308